=== PATIENT | male | born 1955 | race African-American/Black ===

== ENCOUNTER 2016-05-31 06:55 | Emergency (ER) | payer MEDICAID, OTHER ==
[~2016-05-31] VITALS: Ht 190.5 cm; Wt 140.3 kg
[2016-05-31] MEDS ORDERED: KETOROLAC 60MG/2ML VIAL IM ONE (07:30)
[2016-05-31 07:32] VITALS: BP 129/79
== END 2016-05-31 07:49 | disposition home or self-care (01) ==
LOC: ER 07:19
DX: M25.511 Pain in right shoulder (principal); E11.9 Type 2 diabetes mellitus without complications; E78.00 Pure hypercholesterolemia, unspecified; I10 Essential (primary) hypertension
CPT/HCPCS: 96372; 99283; J1885; Z7610